=== PATIENT | female | born 1960 | race Native Hawaiian/Other Pacific Islander ===

== ENCOUNTER 2017-09-30 09:47 | Outpatient (CLI) | payer BC ==
[2017-09-30 10:07] LABS: PLATELET COUNT 275 K/uL (152-353)
[2017-09-30 10:17] LABS: POTASSIUM 3.3 mmol/L (3.6-5.2); SODIUM 137 mmol/L (136-145)
== END 2017-09-30 19:22 | disposition home or self-care (01) ==
LOC: LABW 09:47
PROVIDERS: Specialist
DX: R07.2 Precordial pain (principal); Z01.810 Encounter for preprocedural cardiovascular examination
CPT/HCPCS: 36415; 80053; 85027

== ENCOUNTER 2018-01-04 13:37 | Outpatient (CLI) | payer BC | END 2018-01-04 22:12 | disposition home or self-care (01) | LOC: LABW 13:37 | PROVIDERS: Nurse Practitioner Adult Health | DX: I25.10 Atherosclerotic heart disease of native coronary artery without angina pectoris (principal); Z79.01 Long term (current) use of anticoagulants; Z79.899 Other long term (current) drug therapy; E78.2 Mixed hyperlipidemia; Z51.81 Encounter for therapeutic drug level monitoring | CPT/HCPCS: 36415; 80061; 80076 ==

== ENCOUNTER 2018-08-14 09:35 | Outpatient (CLI) | payer BC ==
[2018-08-14 09:54] LABS: PLATELET COUNT 281 K/uL (152-353)
[2018-08-14 10:12] LABS: POTASSIUM 3.3 mmol/L (3.6-5.2)
== END 2018-08-14 19:53 | disposition home or self-care (01) ==
LOC: LABW 09:35
PROVIDERS: Nurse Practitioner Adult Health
DX: E78.2 Mixed hyperlipidemia (principal); Z79.899 Other long term (current) drug therapy; I10 Essential (primary) hypertension; E03.9 Hypothyroidism, unspecified
CPT/HCPCS: 36415; 80053; 80061; 82248; 83036; 84439; 84443; 85027

== ENCOUNTER 2019-01-30 11:56 | Outpatient (CLI) | payer BC ==
[2019-01-30 12:19] LABS: POTASSIUM 3.3 mmol/L (3.6-5.2)
== END 2019-01-30 22:53 | disposition home or self-care (01) ==
LOC: LABW 11:56
PROVIDERS: Nurse Practitioner Adult Health
DX: I25.10 Atherosclerotic heart disease of native coronary artery without angina pectoris (principal); G47.62 Sleep related leg cramps
CPT/HCPCS: 36415; 80048

== ENCOUNTER 2019-02-28 14:23 | Outpatient (CLI) | payer BC | END 2019-02-28 23:47 | disposition home or self-care (01) | LOC: LABW 14:23 | PROVIDERS: Nurse Practitioner Adult Health | DX: Z79.899 Other long term (current) drug therapy (principal); E87.6 Hypokalemia | CPT/HCPCS: 36415; 80048 ==

== ENCOUNTER 2019-05-01 10:43 | Outpatient (CLI) | payer BC | END 2019-05-01 19:04 | disposition home or self-care (01) | LOC: LABW 10:43 | PROVIDERS: Nurse Practitioner Adult Health | DX: E78.2 Mixed hyperlipidemia (principal); Z79.899 Other long term (current) drug therapy | CPT/HCPCS: 36415; 80061; 80076 ==

== ENCOUNTER 2019-06-02 01:17 | Emergency (ER) | payer BC ==
[~2019-06-02] VITALS: Ht 157.5 cm; Wt 65.3 kg
[2019-06-02 01:20] VITALS: TEMP 97.3
[2019-06-02 01:50] LABS: PLATELET COUNT 296 K/uL (152-353)
[2019-06-02 02:03] LABS: POTASSIUM 3.5 mmol/L (3.6-5.2); SODIUM 137 mmol/L (136-145)
[2019-06-02 02:38] LABS: PARTIAL THROMBOPLASTIN TIME 23.6 SECONDS (24.5-33.6)
[2019-06-02 04:27] VITALS: BP 169/84
== END 2019-06-02 04:41 | disposition home or self-care (01) ==
LOC: ED 01:17
PROVIDERS: Student in an Organized Health Care Education/Training Program
DX: R07.9 Chest pain, unspecified (principal)
CPT/HCPCS: 36415; 80048; 83735; 83880; 84484; 85027; 85610; 85730; 93005; 99284

== ENCOUNTER 2019-06-11 12:15 | Outpatient (CLI) | payer BC ==
[2019-06-11 13:09] LABS: PLATELET COUNT 281 K/uL (152-353)
[2019-06-11 13:28] LABS: POTASSIUM 4.2 mmol/L (3.6-5.2)
== END 2019-06-12 05:52 | disposition home or self-care (01) ==
LOC: LAB 12:15
PROVIDERS: Family Medicine
DX: I10 Essential (primary) hypertension (principal); R09.82 Postnasal drip; E03.9 Hypothyroidism, unspecified; E78.5 Hyperlipidemia, unspecified; E63.9 Nutritional deficiency, unspecified
CPT/HCPCS: 80053; 80061; 82306; 82607; 84439; 84443; 84481; 85027

== ENCOUNTER 2019-11-12 11:10 | Outpatient (CLI) | payer BC | END 2019-11-12 21:50 | disposition home or self-care (01) | LOC: LABW 11:10 | PROVIDERS: Nurse Practitioner Adult Health | DX: I25.10 Atherosclerotic heart disease of native coronary artery without angina pectoris (principal); E78.2 Mixed hyperlipidemia; Z79.899 Other long term (current) drug therapy | CPT/HCPCS: 36415; 80061; 80076 ==

== ENCOUNTER 2019-12-25 13:36 | Outpatient (CLI) | payer BC | END 2019-12-25 20:10 | disposition home or self-care (01) | LOC: MAMMO 13:36 | DX: Z12.31 Encounter for screening mammogram for malignant neoplasm of breast (principal); Z13.820 Encounter for screening for osteoporosis ==

== ENCOUNTER 2020-01-30 12:22 | Outpatient (CLI) | payer BC | END 2020-01-30 19:22 | disposition home or self-care (01) | LOC: LABW 12:22 | PROVIDERS: Specialist | DX: E78.2 Mixed hyperlipidemia (principal); Z79.899 Other long term (current) drug therapy | CPT/HCPCS: 36415; 80061; 80076 ==

== ENCOUNTER 2020-03-22 10:14 | Outpatient (CLI) | payer BC | END 2020-03-22 19:03 | disposition home or self-care (01) | LOC: LABW 10:14 | PROVIDERS: Specialist | DX: E78.2 Mixed hyperlipidemia (principal); Z79.899 Other long term (current) drug therapy | CPT/HCPCS: 36415; 80061; 80076 ==

== ENCOUNTER 2020-07-08 08:24 | Outpatient (CLI) | payer BC | END 2020-07-08 20:09 | disposition home or self-care (01) | LOC: NM 08:24 | DX: I20.8 Other forms of angina pectoris (principal) | CPT/HCPCS: A9500 ==

== ENCOUNTER 2020-08-19 15:35 | Outpatient (CLI) | payer BC | END 2020-08-20 00:46 | disposition home or self-care (01) | LOC: LABW 15:35 | PROVIDERS: Nurse Practitioner Adult Health | DX: I25.10 Atherosclerotic heart disease of native coronary artery without angina pectoris (principal); E78.2 Mixed hyperlipidemia; Z79.899 Other long term (current) drug therapy | CPT/HCPCS: 36415; 80061; 80076 ==

== ENCOUNTER 2020-09-05 13:42 | Outpatient (CLI) | payer BC | END 2020-09-05 20:38 | disposition home or self-care (01) | LOC: MRI 13:42 | DX: M50.320 Other cervical disc degeneration, mid-cervical region, unspecified level (principal); M54.12 Radiculopathy, cervical region ==

== ENCOUNTER 2020-12-29 10:24 | Outpatient (CLI) | payer BC | END 2020-12-29 19:32 | disposition home or self-care (01) | LOC: MAMMO 10:24 | PROVIDERS: ATTEND Obstetrics & Gynecology | DX: Z12.31 Encounter for screening mammogram for malignant neoplasm of breast (principal) ==

== ENCOUNTER 2021-01-26 13:21 | Outpatient (CLI) | payer BC ==
[~2021-01-26] VITALS: Ht 157.5 cm; Wt 70.3 kg
== END 2021-01-26 22:16 | disposition home or self-care (01) ==
LOC: DIABINF 13:21
PROVIDERS: ATTEND Internal Medicine Endocrinology, Diabetes & Metabolism
DX: E88.81 Metabolic syndrome and other insulin resistance (principal); E03.9 Hypothyroidism, unspecified; I10 Essential (primary) hypertension; E78.2 Mixed hyperlipidemia; R53.83 Other fatigue; F32.9 Major depressive disorder, single episode, unspecified; K21.9 Gastro-esophageal reflux disease without esophagitis
CPT/HCPCS: 82948; 96365; 96521; 99204; J1718; J1815

== ENCOUNTER 2021-01-27 12:34 | Outpatient (CLI) | payer BC ==
[~2021-01-27] VITALS: Ht 157.5 cm; Wt 70.3 kg
== END 2021-01-27 20:48 | disposition home or self-care (01) ==
LOC: DIABINF 12:34
PROVIDERS: ATTEND Internal Medicine Endocrinology, Diabetes & Metabolism
DX: E88.81 Metabolic syndrome and other insulin resistance (principal); E03.9 Hypothyroidism, unspecified; I10 Essential (primary) hypertension; E78.2 Mixed hyperlipidemia; R53.83 Other fatigue; F32.9 Major depressive disorder, single episode, unspecified; K21.9 Gastro-esophageal reflux disease without esophagitis; I25.10 Atherosclerotic heart disease of native coronary artery without angina pectoris; E55.9 Vitamin D deficiency, unspecified
CPT/HCPCS: 82948; 96365; 96366; 96521; 99214; J1718; J1815

== ENCOUNTER 2021-02-02 13:01 | Outpatient (CLI) | payer BC ==
[~2021-02-02] VITALS: Ht 157.5 cm; Wt 70.3 kg
== END 2021-02-02 20:52 | disposition home or self-care (01) ==
LOC: DIABINF 13:01
PROVIDERS: ATTEND Internal Medicine Endocrinology, Diabetes & Metabolism
DX: E88.81 Metabolic syndrome and other insulin resistance (principal); E03.9 Hypothyroidism, unspecified; I10 Essential (primary) hypertension; E78.2 Mixed hyperlipidemia; R53.83 Other fatigue; F32.9 Major depressive disorder, single episode, unspecified; K21.9 Gastro-esophageal reflux disease without esophagitis; I25.10 Atherosclerotic heart disease of native coronary artery without angina pectoris; E55.9 Vitamin D deficiency, unspecified
CPT/HCPCS: 82948; 96365; 96366; 96521; 99214; J1718; J1815

== ENCOUNTER 2021-02-03 11:16 | Outpatient (CLI) | payer BC ==
[~2021-02-03] VITALS: Ht 157.5 cm; Wt 70.3 kg
== END 2021-02-03 21:51 | disposition home or self-care (01) ==
LOC: DIABINF 11:16
PROVIDERS: ATTEND Internal Medicine Endocrinology, Diabetes & Metabolism
DX: E88.81 Metabolic syndrome and other insulin resistance (principal); E03.8 Other specified hypothyroidism; I10 Essential (primary) hypertension; E78.2 Mixed hyperlipidemia; R53.83 Other fatigue; F33.9 Major depressive disorder, recurrent, unspecified; F41.1 Generalized anxiety disorder; K21.9 Gastro-esophageal reflux disease without esophagitis; I25.10 Atherosclerotic heart disease of native coronary artery without angina pectoris; E55.9 Vitamin D deficiency, unspecified
CPT/HCPCS: 82948; 96365; 96366; 96521; 99214; J1718; J1815

== ENCOUNTER 2021-02-09 12:02 | Outpatient (CLI) | payer BC ==
[~2021-02-09] VITALS: Ht 157.5 cm; Wt 70.3 kg
== END 2021-02-09 21:37 | disposition home or self-care (01) ==
LOC: DIABINF 12:02
PROVIDERS: ATTEND Internal Medicine Endocrinology, Diabetes & Metabolism
DX: E88.81 Metabolic syndrome and other insulin resistance (principal); E03.8 Other specified hypothyroidism; I10 Essential (primary) hypertension; E78.2 Mixed hyperlipidemia; R53.83 Other fatigue; F33.9 Major depressive disorder, recurrent, unspecified; F41.1 Generalized anxiety disorder; K21.9 Gastro-esophageal reflux disease without esophagitis; I25.10 Atherosclerotic heart disease of native coronary artery without angina pectoris; E55.9 Vitamin D deficiency, unspecified
CPT/HCPCS: 82948; 96365; 96366; 96521; 99214; J1718; J1815

== ENCOUNTER 2021-02-16 12:49 | Outpatient (CLI) | payer BC ==
[~2021-02-16] VITALS: Ht 157.5 cm; Wt 71.2 kg
== END 2021-02-16 19:24 | disposition home or self-care (01) ==
LOC: DIABINF 12:49
PROVIDERS: ATTEND Internal Medicine Endocrinology, Diabetes & Metabolism
DX: E88.81 Metabolic syndrome and other insulin resistance (principal); E03.8 Other specified hypothyroidism; I10 Essential (primary) hypertension; E78.2 Mixed hyperlipidemia; R53.83 Other fatigue; F33.9 Major depressive disorder, recurrent, unspecified; F41.1 Generalized anxiety disorder; K21.9 Gastro-esophageal reflux disease without esophagitis; E55.9 Vitamin D deficiency, unspecified; I25.10 Atherosclerotic heart disease of native coronary artery without angina pectoris
CPT/HCPCS: 82948; 96365; 96366; 96521; 99214; J1718; J1815

== ENCOUNTER 2021-02-23 12:52 | Outpatient (CLI) | payer BC ==
[~2021-02-23] VITALS: Ht 157.5 cm; Wt 71.2 kg
== END 2021-02-23 19:15 | disposition home or self-care (01) ==
LOC: DIABINF 12:52
PROVIDERS: ATTEND Internal Medicine Endocrinology, Diabetes & Metabolism
DX: E88.81 Metabolic syndrome and other insulin resistance (principal); E03.8 Other specified hypothyroidism; I10 Essential (primary) hypertension; E78.2 Mixed hyperlipidemia; R53.83 Other fatigue; F33.9 Major depressive disorder, recurrent, unspecified; F41.1 Generalized anxiety disorder; K21.9 Gastro-esophageal reflux disease without esophagitis; E55.9 Vitamin D deficiency, unspecified; I25.10 Atherosclerotic heart disease of native coronary artery without angina pectoris
CPT/HCPCS: 82948; 96365; 96366; 96521; 99214; J1718; J1815

== ENCOUNTER 2021-03-02 12:13 | Outpatient (CLI) | payer BC ==
[~2021-03-02] VITALS: Ht 157.5 cm; Wt 71.2 kg
== END 2021-03-02 19:47 | disposition home or self-care (01) ==
LOC: DIABINF 12:13
PROVIDERS: ATTEND Internal Medicine Endocrinology, Diabetes & Metabolism
DX: E88.81 Metabolic syndrome and other insulin resistance (principal); E03.8 Other specified hypothyroidism; I10 Essential (primary) hypertension; E78.2 Mixed hyperlipidemia; R53.83 Other fatigue; F33.9 Major depressive disorder, recurrent, unspecified; F41.1 Generalized anxiety disorder; K21.9 Gastro-esophageal reflux disease without esophagitis; E55.9 Vitamin D deficiency, unspecified; I25.10 Atherosclerotic heart disease of native coronary artery without angina pectoris
CPT/HCPCS: 82948; 96365; 96366; 96521; 99214; J1718; J1815

== ENCOUNTER 2021-03-09 12:53 | Outpatient (CLI) | payer BC ==
[~2021-03-09] VITALS: Ht 157.5 cm; Wt 71.2 kg
== END 2021-03-09 22:29 | disposition home or self-care (01) ==
LOC: DIABINF 12:53
PROVIDERS: ATTEND Internal Medicine Endocrinology, Diabetes & Metabolism
DX: E88.81 Metabolic syndrome and other insulin resistance (principal); E03.8 Other specified hypothyroidism; I10 Essential (primary) hypertension; E78.2 Mixed hyperlipidemia; R53.83 Other fatigue; F33.9 Major depressive disorder, recurrent, unspecified; F41.1 Generalized anxiety disorder; K21.9 Gastro-esophageal reflux disease without esophagitis; E55.9 Vitamin D deficiency, unspecified; I25.10 Atherosclerotic heart disease of native coronary artery without angina pectoris
CPT/HCPCS: 82948; 96365; 96366; 96521; 99214; J1718; J1815

== ENCOUNTER 2021-03-16 12:14 | Outpatient (CLI) | payer BC ==
[~2021-03-16] VITALS: Ht 157.5 cm; Wt 71.2 kg
== END 2021-03-16 19:38 | disposition home or self-care (01) ==
LOC: DIABINF 12:14
PROVIDERS: ATTEND Internal Medicine Endocrinology, Diabetes & Metabolism
DX: E88.81 Metabolic syndrome and other insulin resistance (principal); E03.8 Other specified hypothyroidism; I10 Essential (primary) hypertension; E78.2 Mixed hyperlipidemia; R53.83 Other fatigue; F33.9 Major depressive disorder, recurrent, unspecified; F41.1 Generalized anxiety disorder; K21.9 Gastro-esophageal reflux disease without esophagitis; E55.9 Vitamin D deficiency, unspecified; I25.10 Atherosclerotic heart disease of native coronary artery without angina pectoris
CPT/HCPCS: 82948; 96365; 96366; 96521; 99214; J1718; J1815

== ENCOUNTER 2021-03-23 12:20 | Outpatient (CLI) | payer BC ==
[~2021-03-23] VITALS: Ht 157.5 cm; Wt 71.2 kg
== END 2021-03-23 23:41 | disposition home or self-care (01) ==
LOC: DIABINF 12:20
PROVIDERS: ATTEND Internal Medicine Endocrinology, Diabetes & Metabolism
DX: E88.81 Metabolic syndrome and other insulin resistance (principal); E03.8 Other specified hypothyroidism; I10 Essential (primary) hypertension; E78.2 Mixed hyperlipidemia; R53.83 Other fatigue; F33.9 Major depressive disorder, recurrent, unspecified; F41.1 Generalized anxiety disorder; K21.9 Gastro-esophageal reflux disease without esophagitis; E55.9 Vitamin D deficiency, unspecified; I25.10 Atherosclerotic heart disease of native coronary artery without angina pectoris
CPT/HCPCS: 82948; 96365; 96366; 96521; J1815; J1817

== ENCOUNTER 2021-04-01 12:24 | Outpatient (CLI) | payer BC ==
[~2021-04-01] VITALS: Ht 157.5 cm; Wt 71.2 kg
== END 2021-04-01 21:34 | disposition home or self-care (01) ==
LOC: DIABINF 12:24
PROVIDERS: ATTEND Internal Medicine Endocrinology, Diabetes & Metabolism
DX: E88.81 Metabolic syndrome and other insulin resistance (principal); E03.8 Other specified hypothyroidism; I10 Essential (primary) hypertension; E78.2 Mixed hyperlipidemia; R53.83 Other fatigue; F33.0 Major depressive disorder, recurrent, mild; F41.1 Generalized anxiety disorder; K21.9 Gastro-esophageal reflux disease without esophagitis; E55.9 Vitamin D deficiency, unspecified; I25.10 Atherosclerotic heart disease of native coronary artery without angina pectoris
CPT/HCPCS: 82948; 96365; 96366; 96521; J1815; J1817

== ENCOUNTER 2021-04-06 12:38 | Outpatient (CLI) | payer BC ==
[~2021-04-06] VITALS: Ht 157.5 cm; Wt 71.2 kg
== END 2021-04-06 21:01 | disposition home or self-care (01) ==
LOC: DIABINF 12:38
PROVIDERS: ATTEND Internal Medicine Endocrinology, Diabetes & Metabolism
DX: E88.81 Metabolic syndrome and other insulin resistance (principal); E03.8 Other specified hypothyroidism; I10 Essential (primary) hypertension; E78.2 Mixed hyperlipidemia; R53.83 Other fatigue; F33.0 Major depressive disorder, recurrent, mild; F41.1 Generalized anxiety disorder; K21.9 Gastro-esophageal reflux disease without esophagitis; E55.9 Vitamin D deficiency, unspecified; I25.10 Atherosclerotic heart disease of native coronary artery without angina pectoris
CPT/HCPCS: 82948; 96365; 96366; 96521; J1815; J1817

== ENCOUNTER 2021-04-20 12:42 | Outpatient (CLI) | payer BC ==
[~2021-04-20] VITALS: Ht 157.5 cm; Wt 68.9 kg
== END 2021-04-20 21:49 | disposition home or self-care (01) ==
LOC: DIABINF 12:42
PROVIDERS: ATTEND Internal Medicine Endocrinology, Diabetes & Metabolism
DX: E88.81 Metabolic syndrome and other insulin resistance (principal); E03.8 Other specified hypothyroidism; I10 Essential (primary) hypertension; E78.2 Mixed hyperlipidemia; R53.83 Other fatigue; F33.0 Major depressive disorder, recurrent, mild; F41.1 Generalized anxiety disorder; K21.9 Gastro-esophageal reflux disease without esophagitis; E55.9 Vitamin D deficiency, unspecified; I25.10 Atherosclerotic heart disease of native coronary artery without angina pectoris
CPT/HCPCS: 82948; 96365; 96366; 96521; J1815; J1817

== ENCOUNTER 2021-05-04 12:19 | Outpatient (CLI) | payer BC ==
[~2021-05-04] VITALS: Ht 157.5 cm; Wt 68.9 kg
== END 2021-05-04 16:00 | disposition home or self-care (01) ==
LOC: DIABINF 12:19
PROVIDERS: ATTEND Internal Medicine Endocrinology, Diabetes & Metabolism
DX: E88.81 Metabolic syndrome and other insulin resistance (principal); E03.8 Other specified hypothyroidism; I10 Essential (primary) hypertension; E78.2 Mixed hyperlipidemia; R53.83 Other fatigue; F33.0 Major depressive disorder, recurrent, mild; F41.1 Generalized anxiety disorder; K21.9 Gastro-esophageal reflux disease without esophagitis; E55.9 Vitamin D deficiency, unspecified; I25.10 Atherosclerotic heart disease of native coronary artery without angina pectoris
CPT/HCPCS: 82948; 96365; 96366; 96521; J1815; J1817

== ENCOUNTER 2021-05-11 12:22 | Outpatient (CLI) | payer BC | END 2021-05-11 17:00 | disposition home or self-care (01) | LOC: LABW 12:22 | PROVIDERS: ATTEND Nurse Practitioner Adult Health | DX: E78.5 Hyperlipidemia, unspecified (principal); I25.10 Atherosclerotic heart disease of native coronary artery without angina pectoris; Z51.81 Encounter for therapeutic drug level monitoring | CPT/HCPCS: 36415; 80061; 80076 ==

== ENCOUNTER 2021-05-19 12:32 | Outpatient (CLI) | payer BC ==
[~2021-05-19] VITALS: Ht 157.5 cm; Wt 68.9 kg
== END 2021-05-19 19:17 | disposition home or self-care (01) ==
LOC: DIABINF 12:32
PROVIDERS: ATTEND Nurse Practitioner
DX: E88.81 Metabolic syndrome and other insulin resistance (principal); E03.8 Other specified hypothyroidism; I10 Essential (primary) hypertension; E78.2 Mixed hyperlipidemia; R53.83 Other fatigue; F33.0 Major depressive disorder, recurrent, mild; F41.1 Generalized anxiety disorder; K21.9 Gastro-esophageal reflux disease without esophagitis; E55.9 Vitamin D deficiency, unspecified; I25.10 Atherosclerotic heart disease of native coronary artery without angina pectoris
CPT/HCPCS: 82948; 96365; 96366; 96521; J1815; J1817

== ENCOUNTER 2021-06-01 12:37 | Outpatient (CLI) | payer BC ==
[~2021-06-01] VITALS: Ht 157.5 cm; Wt 68.9 kg
== END 2021-06-01 19:45 | disposition home or self-care (01) ==
LOC: DIABINF 12:37
PROVIDERS: ATTEND Nurse Practitioner
DX: E88.81 Metabolic syndrome and other insulin resistance (principal); E03.8 Other specified hypothyroidism; I10 Essential (primary) hypertension; E78.2 Mixed hyperlipidemia; R53.83 Other fatigue; F33.0 Major depressive disorder, recurrent, mild; F41.1 Generalized anxiety disorder; K21.9 Gastro-esophageal reflux disease without esophagitis; I25.10 Atherosclerotic heart disease of native coronary artery without angina pectoris
CPT/HCPCS: 82948; 96365; 96366; 96521; J1815; J1817

== ENCOUNTER 2021-06-15 12:56 | Outpatient (CLI) | payer BC ==
[~2021-06-15] VITALS: Ht 157.5 cm; Wt 56.7 kg
== END 2021-06-15 22:44 | disposition home or self-care (01) ==
LOC: DIABINF 12:56
PROVIDERS: ATTEND Nurse Practitioner
DX: E88.81 Metabolic syndrome and other insulin resistance (principal); E03.8 Other specified hypothyroidism; I10 Essential (primary) hypertension; E78.2 Mixed hyperlipidemia; R53.83 Other fatigue; F33.0 Major depressive disorder, recurrent, mild; F41.1 Generalized anxiety disorder; K21.9 Gastro-esophageal reflux disease without esophagitis; E55.9 Vitamin D deficiency, unspecified; I25.10 Atherosclerotic heart disease of native coronary artery without angina pectoris
CPT/HCPCS: 82948; 96365; 96366; 96521; J1815; J1817

== ENCOUNTER 2021-06-29 12:55 | Outpatient (CLI) | payer BC ==
[~2021-06-29] VITALS: Ht 157.5 cm; Wt 68.9 kg
== END 2021-06-29 19:13 | disposition home or self-care (01) ==
LOC: DIABINF 12:55
PROVIDERS: ATTEND Nurse Practitioner
DX: E88.81 Metabolic syndrome and other insulin resistance (principal); E03.8 Other specified hypothyroidism; I10 Essential (primary) hypertension; E78.2 Mixed hyperlipidemia; R53.83 Other fatigue; F33.0 Major depressive disorder, recurrent, mild; F41.1 Generalized anxiety disorder; K21.9 Gastro-esophageal reflux disease without esophagitis; E55.9 Vitamin D deficiency, unspecified; I25.10 Atherosclerotic heart disease of native coronary artery without angina pectoris
CPT/HCPCS: 82948; 96365; 96366; 96521; J1815; J1817

== ENCOUNTER 2021-07-13 12:54 | Outpatient (CLI) | payer BC ==
[~2021-07-13] VITALS: Ht 157.5 cm; Wt 56.7 kg
== END 2021-07-13 21:17 | disposition home or self-care (01) ==
LOC: DIABINF 12:54
PROVIDERS: ATTEND Nurse Practitioner
DX: E88.81 Metabolic syndrome and other insulin resistance (principal); I25.10 Atherosclerotic heart disease of native coronary artery without angina pectoris; I10 Essential (primary) hypertension; K21.9 Gastro-esophageal reflux disease without esophagitis; F41.8 Other specified anxiety disorders; E03.8 Other specified hypothyroidism
CPT/HCPCS: 82948; 96365; 96366; 96521; J1815; J1817

== ENCOUNTER 2021-10-20 10:07 | Outpatient (CLI) | payer BC ==
[2021-10-20 10:20] LABS: PLATELET COUNT 260 K/uL (152-353)
[2021-10-20 10:57] LABS: POTASSIUM 3.7 mmol/L (3.6-5.2)
== END 2021-10-20 18:59 | disposition home or self-care (01) ==
LOC: LABW 10:07
PROVIDERS: ATTEND Nurse Practitioner Adult Health
DX: I10 Essential (primary) hypertension (principal); K21.9 Gastro-esophageal reflux disease without esophagitis; E03.9 Hypothyroidism, unspecified; E78.2 Mixed hyperlipidemia; Z79.899 Other long term (current) drug therapy; Z68.26 Body mass index [BMI] 26.0-26.9, adult
CPT/HCPCS: 36415; 80053; 80061; 82248; 83036; 84439; 84443; 85027

== ENCOUNTER 2021-11-01 22:39 | Emergency (ER) | payer BC ==
[~2021-11-01] VITALS: Ht 157.5 cm; Wt 66.7 kg
[2021-11-01] MEDS ORDERED: PROTONIX20 MG PO (23:00)
[2021-11-01] MEDS ORDERED: METOPROLOL25 M1 PO (23:00)
[2021-11-01 23:05] LABS: PLATELET COUNT 301 K/uL (152-353)
[2021-11-01 23:14] LABS: POTASSIUM 3.4 mmol/L (3.6-5.2)
[2021-11-02 01:35] VITALS: BP 153/75; TEMP 98.4
== END 2021-11-02 01:40 | disposition home or self-care (01) ==
LOC: ED 22:39
PROVIDERS: Emergency Medicine Emergency Medical Services
DX: R07.89 Other chest pain (principal)
CPT/HCPCS: 36415; 80053; 84484; 85027; 93005; 99284

== ENCOUNTER 2023-05-20 09:55 | Outpatient (CLI) | payer BC ==
[~2023-05-20 09:55] MED LIST: METOPROLOL25 M1 PO; PROTONIX20 MG PO
== END 2023-05-20 19:04 | disposition home or self-care (01) ==
LOC: MAMMO 09:55
PROVIDERS: ATTEND Physician Assistant
DX: Z12.31 Encounter for screening mammogram for malignant neoplasm of breast (principal)